=== PATIENT | male | born 1980 | race Caucasian/White ===

== ENCOUNTER 2019-09-03 09:58 | Emergency (ER) | payer OTHER ==
[~2019-09-03] VITALS: Ht 182.9 cm; Wt 74.8 kg
--- NOTE | 2019-09-03 10:00 | NUR ---
MOHAN TA 88 Escorted by Officer Nix [id number] "[facility] Neuropsychology Director +air bag NO KO. C/O LEFT ARM PAIN. PATIENT A/OX4, BREATHING EVEN AND UNLABORED, NO SOB NOTED, NEEDS ATTENDED, KEPT COMFORTABLE.
[2019-09-03] MEDS ORDERED: HYDROCODONE/APAP 10/325MG 1 EA TABLET PO ONE (10:30)
--- NOTE | 2019-09-03 11:48 | NUR ---
Patient discharged to [facility] in stable condition. Written and verbal after care instructions given. Patient verbalizes understanding of instruction.
[2019-09-03 11:49] VITALS: BP 116/72
== END 2019-09-03 11:49 ==
LOC: ER 09:58
DX: S52.92XA Unspecified fracture of left forearm, initial encounter for closed fracture (principal); V49.49XA Driver injured in collision with other motor vehicles in traffic accident, initial encounter; Y93.89 Activity, other specified; Y92.488 Other paved roadways as the place of occurrence of the external cause; Y99.8 Other external cause status
CPT/HCPCS: 73090-TC

== ENCOUNTER 2022-10-30 18:53 | Emergency (ER) | payer SELFPAY ==
[~2022-10-30] VITALS: Ht 188 cm; Wt 81.6 kg
--- NOTE | 2022-10-30 19:00 | NUR ---
Parent number [phone] Johanna
--- NOTE | 2022-10-30 19:17 | NUR ---
MOHAN ROBERTS From Home "parent called for AMS ?Ingestion of meds/NOT acting normal. Pupils dilated. Sleepy. Tolerating R/A wel with no resp distress. Connected pt to POX and monitor. Safety measures in place.
--- NOTE | 2022-10-30 20:32 | NUR ---
PEDIATRIC NEPHROLOGIST AT PT'S BEDSIDE
--- NOTE | 2022-10-30 20:34 | NUR ---
CALL MOTHER ONCE HE IS READY FOR INFORMATION SYSTEMS ANALYST MISAEL [phone]
[2022-10-30 20:48] LABS: BASOPHILS # (AUTO) 0.1 K/uL (0.0-0.2); BASOPHILS % (AUTO) 1.1 % (0.0-2.0); EOSINOPHILS % (AUTO) 3.6 % (0.0-6.0); HEMATOCRIT 34 % (39-51); HEMOGLOBIN 11.4 g/dL (13.5-17.5); MEAN CORPUSCULAR HGB CONC 33 g/dl (31.0-36.0); MEAN CORPUSCULAR VOLUME 98 fL (80-96); MONOCYTES # (AUTO) 0.7 K/uL (0.1-1.30); MONOCYTES % (AUTO) 6.7 % (2.0-12.0); NEUTROPHILS # (AUTO) 7.3 K/uL (1.8-8.9); NEUTROPHILS % (AUTO) 69.6 % (43.0-81.0); PLATELET COUNT (AUTO) 271 K/uL (150-450); RED BLOOD CELL COUNT(AUTO) 3.49 MIL/uL (4.5-6.0); WHITE BLOOD COUNT (AUTO) 10.6 K/uL (4.3-11.0)
[2022-10-30 21:04] LABS: CARBON DIOXIDE 29 mmol/L (21-32); CHLORIDE 105 mmol/L (98-107); GLUCOSE 106 mg/dL (74-106); SODIUM SERUM 140 mmol/L (136-145); UREA NITROGEN, BLOOD 14 mg/dL (7-18)
[2022-10-30 21:10] LABS: ALANINE AMINOTRANSFERASE 34 U/L (12-78); ALBUMIN 3.1 g/dL (3.4-5.0); ALKALINE PHOSPHATASE 64 U/L (46-116); ASPARTATE AMINOTRANSFERASE 12 U/L (15-37); BILIRUBIN,TOTAL 0.1 mg/dL (0.2-1.0)
[2022-10-30 21:11] LABS: ALCOHOL, BLOOD < 3 mg/dL (0-0)
--- NOTE | 2022-10-30 21:18 | NUR ---
URINE SAMPLE COLLECTED
[2022-10-30 22:45] LABS: BILIRUBIN,URINE NEGATIVE (NEGATIVE); COLOR,URINE YELLOW (YELLOW); LEUKOCYTE ESTERASE ,URINE NEGATIVE (NEGATIVE); NITRITE, URINE NEGATIVE (NEGATIVE); PH,URINE 7.5 (5.0-8.0); PROTEIN,URINE NEGATIVE (NEGATIVE); UGLUCOSE NEGATIVE (NEGATIVE); UROBILINOGEN,URINE 0.2 EU/dL (0.2)
--- NOTE | 2022-10-30 23:50 | NUR ---
PT RETURN FROM CT.
[2022-10-31] MEDS ORDERED: IV NS 0.9% 1,000 ML IV ONE (01:00)
--- NOTE | 2022-10-31 03:31 | NUR ---
CALLED CRISIS TEAM [facility], NO ANSWER. WILL TRY AGAIN LATER.
--- NOTE | 2022-10-31 03:33 | NUR ---
CRISIS TEAM [facility]OUD ON THE WAY ETA 1 HOUR
--- NOTE | 2022-10-31 03:37 | NUR ---
patient ambulatory with steady gait. Walked to the bathroom.
[2022-10-31 03:40] VITALS: BP 110/66
--- NOTE | 2022-10-31 03:40 | NUR ---
Patient discharged to home in stable condition. Written and verbal after care instructions given. Patient verbalizes understanding of instruction.IV removed. Catheter intact and site benign. Pressure and 4x4 applied to site. No bleeding noted.
== END 2022-10-31 03:40 | disposition home or self-care (01) ==
LOC: ER 18:58
DX: R41.82 Altered mental status, unspecified (principal); T42.4X1A Poisoning by benzodiazepines, accidental (unintentional), initial encounter; Y92.89 Other specified places as the place of occurrence of the external cause
CPT/HCPCS: 99284; 93005; 70450; 85025; 80048; 80076; 83735; 81003; 36415; 84484; 82962; 80143; 80320; 80307; 96360; J7030; G0480

== ENCOUNTER 2022-11-05 15:13 | Emergency (ER) | payer BC ==
[~2022-11-05] VITALS: Ht 182.9 cm; Wt 71.7 kg
[2022-11-05] MEDS ORDERED: IV NS 0.9% 1,000 ML BAG IV ONE (15:30)
[2022-11-05] MEDS ORDERED: LORAZEPAM INJ 2 MG/ML VIAL IV ONE (15:30)
[2022-11-05] MEDS ORDERED: LORAZEPAM INJ 2 MG/ML VIAL ONE (16:03)
[2022-11-05 16:34] LABS: BASOPHILS # (AUTO) 0.1 K/uL (0.0-0.2); HEMATOCRIT 39 % (39-51); HEMOGLOBIN 12.7 g/dL (13.5-17.5); LYMPHOCYTES # (AUTO) 1.3 K/uL (0.8-4.8); MEAN CORPUSCULAR HGB CONC 33 g/dl (31.0-36.0); MONOCYTES # (AUTO) 1.4 K/uL (0.1-1.30)
[2022-11-05 16:44] LABS: BASOPHILS % (AUTO) 0.8 % (0.0-2.0); EOSINOPHILS % (AUTO) 3.8 % (0.0-6.0); LYMPHOCYTES % (AUTO) 14.7 % (20.0-44.0); MEAN CORPUSCULAR VOLUME 101 fL (80-96); MONOCYTES % (AUTO) 16.3 % (2.0-12.0); NEUTROPHILS # (AUTO) 5.6 K/uL (1.8-8.9); NEUTROPHILS % (AUTO) 64.4 % (43.0-81.0); PLATELET COUNT (AUTO) 364 K/uL (150-450); WHITE BLOOD COUNT (AUTO) 8.8 K/uL (4.3-11.0)
[2022-11-05 16:46] LABS: ALANINE AMINOTRANSFERASE 38 U/L (12-78); ALBUMIN 3.3 g/dL (3.4-5.0); ALCOHOL, BLOOD < 3 mg/dL (0-0); ALKALINE PHOSPHATASE 85 U/L (46-116); ASPARTATE AMINOTRANSFERASE 21 U/L (15-37); BILIRUBIN,DIRECT 0.1 mg/dL (0.0-0.2); BILIRUBIN,TOTAL 0.2 mg/dL (0.2-1.0); CALCIUM, SERUM 9.6 mg/dL (8.5-10.1); CARBON DIOXIDE 29 mmol/L (21-32); CHLORIDE 104 mmol/L (98-107); CREATININE 1.1 mg/dL (0.6-1.3); GLUCOSE 130 mg/dL (74-106); POTASSIUM 4.1 mmol/L (3.5-5.1); SODIUM SERUM 140 mmol/L (136-145); TOTAL PROTEIN, SERUM 6.8 g/dL (6.4-8.2); UREA NITROGEN, BLOOD 13 mg/dL (7-18)
--- NOTE | 2022-11-05 17:02 | NUR ---
PATIENTS MEDS PER PRIMARY DRNuzhat - OLANZAPINE 30MG , SEROQUEL 250 AND PATIENT IS ALSO ON DEPACOTE AND KEPPRA.
--- NOTE | 2022-11-05 17:03 | NUR ---
FAMILY AT BEDSIDE
[2022-11-05 18:00] LABS: EOSINOPHILS % (MANUAL) 7 % (0-4); LYMPHOCYTES % (MANUAL) 16 % (16-48); MONOCYTES % (MANUAL) 9 % (0-11.0); NEUTROPHILS % (MANUAL) 68 (42-76)
--- NOTE | 2022-11-05 18:22 | NUR ---
IV removed. Catheter intact and site benign. Pressure and 4x4 applied to site. No bleeding noted.
--- NOTE | 2022-11-05 18:22 | NUR ---
Patient discharged to home with mother in stable condition. help patient wheeled outside emergency dept. Written and verbal after care instructions given. Patient and mother verbalizes understanding of instruction.
[2022-11-05 18:23] VITALS: BP 121/61
== END 2022-11-05 18:24 | disposition home or self-care (01) ==
LOC: ER 15:42
DX: R41.82 Altered mental status, unspecified (principal)
CPT/HCPCS: 99285; 96374; 96361; 93005; 70450; 85025; 80048; 80076; 85007; 36415; 80143; 80320; J2060; G0480

== ENCOUNTER 2023-05-14 10:29 | Emergency (ER) | payer BC ==
[~2023-05-14] VITALS: Ht 182.9 cm; Wt 59.2 kg
[2023-05-14] MEDS ORDERED: OLANZAPINE ZYDIS 5 MG TAB.RAPDIS PO ONE (11:30)
[2023-05-14] MEDS ORDERED: OLANZAPINE 5 MG TABLET ONE (11:33)
[2023-05-14 11:36] LABS: BASOPHILS % (AUTO) 0.2 % (0.0-2.0); EOSINOPHILS % (AUTO) 0.2 % (0.0-6.0); HEMATOCRIT 39 % (39-51); HEMOGLOBIN 12.9 g/dL (13.5-17.5); LYMPHOCYTES # (AUTO) 1.1 K/uL (0.8-4.8); LYMPHOCYTES % (AUTO) 12.3 % (20.0-44.0); MEAN CORPUSCULAR HEMOGLOBIN 33 PG (26.0-33.0); MEAN CORPUSCULAR HGB CONC 33 g/dl (31.0-36.0); MEAN CORPUSCULAR VOLUME 98 fL (80-96); MONOCYTES # (AUTO) 0.7 K/uL (0.1-1.30); MONOCYTES % (AUTO) 7.3 % (2.0-12.0); NEUTROPHILS # (AUTO) 7.3 K/uL (1.8-8.9); PLATELET COUNT (AUTO) 285 K/uL (150-450); RED BLOOD CELL COUNT(AUTO) 3.95 MIL/uL (4.5-6.0); RED CELL DISTRIBUTION WIDTH 13.6 % (11.5-15.0); WHITE BLOOD COUNT (AUTO) 9.1 K/uL (4.3-11.0)
[2023-05-14 11:48] LABS: CALCIUM, SERUM 9.2 mg/dL (8.5-10.1); CARBON DIOXIDE 25 mmol/L (21-32); CHLORIDE 104 mmol/L (98-107); CREATININE 1.4 mg/dL (0.6-1.3); GLUCOSE 97 mg/dL (74-106); POTASSIUM 4.1 mmol/L (3.5-5.1); SODIUM SERUM 140 mmol/L (136-145); UREA NITROGEN, BLOOD 20 mg/dL (7-18)
[2023-05-14 11:54] LABS: ALANINE AMINOTRANSFERASE 32 U/L (12-78); ALBUMIN 3.7 g/dL (3.4-5.0); ALCOHOL, BLOOD < 3 mg/dL (0-10); ALKALINE PHOSPHATASE 76 U/L (46-116); ASPARTATE AMINOTRANSFERASE 19 U/L (15-37); BILIRUBIN,DIRECT 0.1 mg/dL (0.0-0.2); BILIRUBIN,TOTAL 0.2 mg/dL (0.2-1.0); TOTAL PROTEIN, SERUM 6.7 g/dL (6.4-8.2)
[2023-05-14 11:56] LABS: ACETAMINOPHEN <10 ug/ml (10-30)
[2023-05-14] MEDS ORDERED: diphenhydrAMINE HCL 50 MG/ML VIAL ONE (12:47)
[2023-05-14] MEDS ORDERED: HALOPERIDOL LACTATE INJ 5 MG/ML VIAL ONE (12:48)
[2023-05-14] MEDS ORDERED: LORAZEPAM INJ 2 MG/ML VIAL ONE (12:48)
[2023-05-14] MEDS ORDERED: LORAZEPAM INJ 2 MG/ML VIAL IM ONE (13:00)
[2023-05-14] MEDS ORDERED: diphenhydrAMINE HCL 50 MG/ML VIAL IM ONE (13:00)
[2023-05-14] MEDS ORDERED: HALOPERIDOL LACTATE INJ 5 MG/ML VIAL IM ONE (13:00)
[2023-05-14 15:17] LABS: APPEARANCE,URINE CLEAR (CLEAR); BILIRUBIN,URINE NEGATIVE (NEGATIVE); BLOOD, URINE NEGATIVE Ery/uL (NEGATIVE); COLOR,URINE YELLOW (YELLOW); KETONES,URINE NEGATIVE (NEGATIVE); LEUKOCYTE ESTERASE ,URINE NEGATIVE (NEGATIVE); NITRITE, URINE NEGATIVE (NEGATIVE); PH,URINE 6.5 (5.0-8.0); PROTEIN,URINE NEGATIVE (NEGATIVE); UGLUCOSE NEGATIVE (NEGATIVE); UROBILINOGEN,URINE 0.2 EU/dL (0.2)
[2023-05-14 15:27] LABS: BARBITURATE, URINE NEGATIVE (NEGATIVE); COCCAINE, URINE NEGATIVE (NEGATIVE); OPIATE, URINE NEGATIVE (NEGATIVE); PHENCYCLIDINE SCREEN,URINE NEGATIVE (NEGATIVE)
[2023-05-14 15:29] LABS: AMPHETAMINE, URINE POSITIVE (NEGATIVE); BENZODIAZEPINE, URINE POSITIVE (NEGATIVE); CANNABINOID, URINE POSITIVE (NEGATIVE)
[2023-05-15] MEDS ORDERED: OLANZAPINE 10 MG VIAL IM ONE ×4 (03:35→16:30)
[2023-05-15 16:00] VITALS: BP 116/65; TEMP 97.9; O2SAT 99
== END 2023-05-15 16:29 ==
LOC: ER 10:31
DX: F29 Unspecified psychosis not due to a substance or known physiological condition (principal); R45.1 Restlessness and agitation; F20.9 Schizophrenia, unspecified; Z20.822 Contact with and (suspected) exposure to COVID-19
CPT/HCPCS: 99291; 96372 ×3; 85025; 80048; 80076; 81003; 36415; 80143; 80320; 80307; 87426; J2060; J1200; J1630; J3490 ×2; A6403 ×2; C9803; G0480

== ENCOUNTER 2024-06-23 20:01 | Emergency (ER) | payer BC ==
[~2024-06-23] VITALS: Ht 177.8 cm; Wt 72.6 kg
[2024-06-23 21:42] VITALS: BP 116/70; TEMP 98.4; O2SAT 98
== END 2024-06-23 21:43 | disposition home or self-care (01) ==
LOC: ER 20:11
DX: R46.2 Strange and inexplicable behavior (principal); F20.9 Schizophrenia, unspecified; R73.9 Hyperglycemia, unspecified; R07.89 Other chest pain
CPT/HCPCS: 82962-TC

== ENCOUNTER 2024-07-23 13:57 | Emergency (ER) | payer BC ==
[~2024-07-23] VITALS: Ht 172.7 cm; Wt 72.6 kg
[2024-07-23] MEDS ORDERED: BENZTROPINE MESYLATE (1 MG) 1 MG TABLET ONE (15:12)
[2024-07-23] MEDS: BENZTROPINE MESYLATE (1 MG) 1 MG TABLET PO ONE (15:15)
[2024-07-23] MEDS ORDERED: BENZ1TAB7 PO (15:44)
[2024-07-23 16:09] VITALS: BP 110/71; TEMP 98.3; O2SAT 100
== END 2024-07-23 16:09 | disposition home or self-care (01) ==
LOC: ER 14:00
DX: G24.09 Other drug induced dystonia (principal); T43.4X5A Adverse effect of butyrophenone and thiothixene neuroleptics, initial encounter; Y92.89 Other specified places as the place of occurrence of the external cause; M62.838 Other muscle spasm; R47.81 Slurred speech; F20.9 Schizophrenia, unspecified; F31.9 Bipolar disorder, unspecified